=== PATIENT | male | born 1955 | race Caucasian/White ===

== ENCOUNTER 2018-02-10 09:21 | Day surgery (SDC) | payer OTHER, SELFPAY ==
--- NOTE | 2018-02-08 09:26 | EKG12_ITS ---
Test Reason : PRE-OP Blood Pressure : / mmHG Vent. Rate : 062 BPM Atrial Rate : 062 BPM P-R Int : 174 ms QRS Dur : 090 ms QT Int : 394 ms P-R-T Axes : 047 -23 006 degrees QTc Int : 399 ms Normal sinus rhythm Normal ECG Confirmed by MELY MIX, JULIANO ([id number]), editorial manager TARIK BRISCOE ([id number]) on 02/11/2018 2:53:45 PM Referred By: Zana Rondon Confirmed By:JULIANO BOONE MD
[2018-02-08 09:51] LABS: Hematocrit 45.5 % (40-54); Hemoglobin 15.9 g/dl (13.0-16.5); Mean Corp Hgb Conc 34.9 g/gl (32-36); Mean Corpuscular Hgb 31.6 pg (27.0-32.0); Mean Corpuscular Volume 90.5 fL (80-94); Mean Platelet Vol. 10.1 fl (6.2-12.0); Platelet Count 238 K/mm3 (150-450); RBC Distribution Width CV 13.1 % (11.6-14.6); Red Blood Count 5.03 M/mm3 (4.6-6.2); White Blood Count 6.1 K/mm3 (4.4-11.0)
[2018-02-08 10:13] LABS: Anion Gap 5 (5-15); BUN 17 mg/dL (7-18); BUN/Creat Ratio 16.5 RATIO (10-20); Chloride 109 mmol/L (98-107); Creatinine, Serum 1.03 mg/dL (0.70-1.30); EST Glomerular Filtration Rate 77 mL/min (>60); Est Glom Filt Rate - Afr Amer 94 mL/min (>60); Glucose 95 mg/dL (74-106); Potassium 3.9 mmol/L (3.5-5.1); Sodium Level 143 mmol/L (136-145)
[2018-02-08 10:14] LABS: Scan Indicated on CBC? Y/N NO
[2018-02-10] VITALS (8 sets, daily range): BP systolic 125–140; BP diastolic 81–90; PULSE 61–79; RESP 16; TEMP 36.2–36.7; O2SAT 92–100; BMI 23.4
--- NOTE | 2018-02-10 12:02 | PCM.DC.GS ---
Discharge Diet: Light diet - advance as tolerated - if you have questions about your diet instructions, please talk to you doctor. Discharge Activity: May Not Drive - for 1 week or while taking narcotic pain medicine. May shower in (days): 1 Lifting Restrictions: 10 pounds Call your doctor if your incision/area has: Continuous Slow Oozing, Sudden Increased Bleeding, Increased Pain/ Swelling, Increased Redness, Foul Smelling Discharge Call your doctor if you observe: Fever of 101 or Higher Suture Line Care: Avoid Pulling/Pushing, Avoid Pinching/Bending Additional Dressing/Incision Instructions:: Change or remove dressing in 4 days. Leave steri-strips in place for 1 week. Allergies/Adverse Reactions: Allergies No Known Allergies Allergy (Verified 02/05/18 15:16) Medications to take at Discharge tadalafil 20 mg tablet 20 mg PO QODAY 12/31/17 Esomeprazole Mag Trihydrate [Nexium] 20 mg PO DAILY 02/05/18 Hydrocodone Bitart/Apap 5-325 [[place] 5MG-325MG] 1 tablet PO Q6H PRN PRN 3 Days #10 tablet 02/10/18 The following prescriptions were given: Hydrocodone Bitart/Apap 5-325 [[place] 5MG-325MG] 1 tablet PO Q6H PRN PRN 3 Days #10 tablet PRN Reason: Pain Primary Care Physician: Baljinder Harrington [Primary Care Provider] - Please Follow Up With: Zana Rondon MD - [phone] When: Call to make an appointment to be seen in about 10 days.
[2018-02-10] MEDS: Cefazolin 2 GM in 0.9% Normal Saline 100 ML IV (12:05)
[2018-02-10] MEDS: Bupivacaine 0.25% 30 ML Vial (12:40)
--- NOTE | 2018-02-10 12:48 | PCM.OPRPT ---
Problem List (1) Inguinal hernia of right side without obstruction or gangrene Status: Acute Report of Operation Date of Procedure: 02/10/18 Pre-Operative Diagnosis: Right inguinal hernia Post-Operative Diagnosis: Indirect right inguinal hernia Surgery/Procedure Performed:: Laparoscopic right inguinal herniorrhaphy. Bard 3D Max mesh right large lot number [id number]. Reference #[id number]. Expiry date 05/13/2022. Secure strap lot number [id number]. Expiry date July 2018 Description of Surgical Findings:: Amount and informed consent was obtained. 62-year-old gent was taken out from. He was placed on the table. Underwent general endotracheal intubation anesthesia. Ancef 2 g given intravenously preoperatively. The abdomen was sterilely prepped and draped. 0.5% Marcaine was used as a local anesthetic. Throughout the procedure total 30 cc was used. Skin sites were pre-anesthetized. A vertical infraumbilical incision was made at the umbilicus. Sharp dissection was carried down through the substance tissue. Holding sutures of 0 Vicryl placed. Varies needle inserted. Saline drop test performed. The abdomen was insufflated with CO2 to pressure of 10 mmHg pressure. Nadeen trocar inserted. 10 lap scope inserted. No evidence of any trocar injuries under conization five-minute ports were placed on the right and left lower quadrants. The peritoneum superior lateral to the internal ring on the right was incised after abdominal expiration. There is no defect on the left there was an indirect defect on the right no evidence of other superficial abdominal abnormality. The peritoneum on the right was incised. Immediately the peritoneum was then completely dissected free. It is of note on her left scopic visualization that an ilioinguinal nerve block had been performed on the right. The peritoneum now did not completely dissected free giving access to the direct indirect and femoral area. A Bard 3D max large mesh was placed so as to cover the defect with excellent positioning. It was secured with secure strap laterally superiorly and medially. 5 total tacks were used. The peritoneum was then approximated to itself with the secure strap and complete obliteration to the mesh was achieved. Trochars removed under visualization. Hemostasis was intact. No evidence of any complication. The fascia at the umbilicus approximated interrupted 0 Vicryl figure 8 suture. Skin edges proximate interrupted 4 Monocryl subdermal stitches. Steri-Strips Telfa and OpSite dressings applied. Sponge instrument and needle counts were reported to the surgeon to be correct. He was taken to the recovery area in satisfactory condition. Specimens none. Drains none. Blood loss minimal. Zana Rondon M.D., F.A.C.S. Type of Anesthesia:: General Anesthesiologist: Kya Benton
--- NOTE | 2018-02-10 12:53 | OP.PCM_ITS ---
Problem List (1) Inguinal hernia of right side without obstruction or gangrene Status: Acute Report of Operation Date of Procedure: 02/10/18 Pre-Operative Diagnosis: Right inguinal hernia Post-Operative Diagnosis: Indirect right inguinal hernia Surgery/Procedure Performed:: Laparoscopic right inguinal herniorrhaphy. Bard 3D Max mesh right large lot number [id number]. Reference #[id number]. Expiry date . Secure strap lot number [id number]. Expiry date July 2018 Description of Surgical Findings:: Amount and informed consent was obtained. 62-year-old gent was taken out from. He was placed on the table. Underwent general endotracheal intubation anesthesia. Ancef 2 g given intravenously preoperatively. The abdomen was sterilely prepped and draped. 0.5% Marcaine was used as a local anesthetic. Throughout the procedure total 30 cc was used. Skin sites were pre- anesthetized. A vertical infraumbilical incision was made at the umbilicus. Sharp dissection was carried down through the substance tissue. Holding sutures of 0 Vicryl placed. Varies needle inserted. Saline drop test performed. The abdomen was insufflated with CO2 to pressure of 10 mmHg pressure. Nadeen trocar inserted. 10 lap scope inserted. No evidence of any trocar injuries under conization five-minute ports were placed on the right and left lower quadrants. The peritoneum superior lateral to the internal ring on the right was incised after abdominal expiration. There is no defect on the left there was an indirect defect on the right no evidence of other superficial abdominal abnormality. The peritoneum on the right was incised. Immediately the peritoneum was then completely dissected free. It is of note on her left scopic visualization that an ilioinguinal nerve block had been performed on the right. The peritoneum now did not completely dissected free giving access to the direct indirect and femoral area. A Bard 3D max large mesh was placed so as to cover the defect with excellent positioning. It was secured with secure strap laterally superiorly and medially. 5 total tacks were used. The peritoneum was then approximated to itself with the secure strap and complete obliteration to the mesh was achieved. Trochars removed under visualization. Hemostasis was intact. No evidence of any complication. The fascia at the umbilicus approximated interrupted 0 Vicryl figure 8 suture. Skin edges proximate interrupted 4 Monocryl subdermal stitches. Steri-Strips Telfa and OpSite dressings applied. Sponge instrument and needle counts were reported to the surgeon to be correct. He was taken to the recovery area in satisfactory condition. Specimens none. Drains none. Blood loss minimal. Zana Rondon M.D., F.A.C.S. Type of Anesthesia:: General Anesthesiologist: Kya Benton
[2018-02-10] MEDS: HYDROcodone Bitartrate/Apap 5/325 Tablet PO (15:35)
== END 2018-02-10 15:53 | disposition home or self-care (01) ==
LOC: SDC 09:23 → AC 09:24
PROVIDERS: Family Provider Family Medicine; PCP Family Medicine; Visit Provider Surgery
PROC: (CPT 49650; principal; 2018-02-10 10:40)
DX: K40.90 Unilateral inguinal hernia, without obstruction or gangrene, not specified as recurrent (principal); G47.30 Sleep apnea, unspecified; K21.9 Gastro-esophageal reflux disease without esophagitis; Z87.19 Personal history of other diseases of the digestive system; Z85.828 Personal history of other malignant neoplasm of skin; Z90.49 Acquired absence of other specified parts of digestive tract; Z79.899 Other long term (current) drug therapy
CPT/HCPCS: 49650; 36415; 80048; 85027; 93005; J7120; C1781

== ENCOUNTER → 2019-10-25 07:41 | Outpatient (CLI) | payer MEDICARE, SELFPAY ==
[2019-10-12 11:51] VITALS: BMI 23.4
--- NOTE | 2019-10-25 07:43 | CT_ITS ---
STUDY: CT PELVIS WITH CONTRAST REASON FOR EXAM: Male, 64 years old. Right groin pain for 6 weeks RADIATION DOSAGE (If Supplied By Facility): CTDIvol = ( 19.66 ) mGy, DLP = ( 1094.07 ) mGycm TECHNIQUE: Transaxial imaging of the pelvis was performed without oral contrast. 100ML ISOVUE 370 was administered intravenously. Individualized dose optimization techniques were used for this CT. COMPARISON: None. FINDINGS: Normal urinary bladder. Normal visualized small intestine. Normal visualized colon. There is no pelvic fluid. There is no pelvic lymphadenopathy or mass lesion. Normal visualized pelvic arteries. Specific prominence of the prostate. Small fat-containing right inguinal hernia without evidence for incarceration.. Lumbar spine demonstrates mild spondylosis.. CT/Pelvis WITH IV Contrast IMPRESSION: Small fat-containing right inguinal hernia Electronically Signed: Rafael Toledo MD at 17:34 EST , Service support ,
[2019-10-25 08:06] LABS: EGFR FINGERSTICK > 60.0000 mL/min (>60)
== END ==
PROVIDERS: Family Provider Family Medicine; PCP Family Medicine; Referring Provider Surgery; Visit Provider Surgery
DX: Z01.812 Encounter for preprocedural laboratory examination (principal); R10.31 Right lower quadrant pain
CPT/HCPCS: 72193; Q9967

== ENCOUNTER 2019-12-08 08:48 | Day surgery (SDC) | payer MEDICARE, SELFPAY ==
--- NOTE | 2019-10-28 12:59 | HP_ITS ---
Intake Visit Reasons: CT results Chief Complaint: right groin pain, hx [facility] Anthropology And Archeology Instructor Required: No Is patient in pain?: No Allergies No Known Allergies Allergy (Verified 10/28/19 13:31) Medications tadalafil 20 mg tablet 20 mg PO QODAY 12/31/17 [History Confirmed 10/28/19] Esomeprazole Mag Trihydrate [Nexium] 20 mg PO DAILY 02/05/18 [History Confirmed 10/28/19] multivitamin capsule 1 cap PO DAILY 10/12/19 [History Confirmed 10/28/19] [facility] Medical History (Updated 10/28/19 @ 12:59 by Zana Rondon MD) Recurrent right inguinal hernia (Acute) Right groin pain (Acute) Inguinal hernia of right side without obstruction or gangrene (Acute) Sleep apnea (Acute) Hemorrhoids (Acute) Acid reflux (Acute) Surgical History (Updated 02/17/18 @ 13:00 by Latanya Uriarte) S/P right inguinal hernia repair (Acute) Hx of basal cell carcinoma excision (Acute) S/P cholecystectomy (Acute) Family History (Updated 12/31/17 @ 09:43 by Latanya Uriarte) Mother Diabetes Brother Diabetes Social History (Updated 10/28/19 @ 14:27 by Zana Rondon MD) Smoking Status: Never smoker second hand exposure: No alcohol intake: current alcohol intake frequency: holidays/special occasions only substance use type: does not use caffeine: No what type of physical activity do you participate in: walking, running, weight training frequency: daily seatbelt use: always HPI HPI HPI: JUVENTINO MCNEAL, is a 64 M who presents to the office today for HPI HPI Surgical H&P: Yes HPI: JUVENTINO MCNEAL, is a 64 M who presents to the office today for ongoing surgical follow-up. I saw him on October 12, 2019. He was complaining of pain and possible recurrent hernia right groin. It is of note that February 10, 2018 I performed a laparoscopic repair of an indirect right inguinal hernia. As part of his evaluation he obtained a pelvic CT. This suggests that there is a new medial direct right inguinal hernia. I have reviewed these films with and he concurs with a medial defect just inferior to the mesh medially. [facility] Imaging Services [address] [place] [address] Pelvis WITH IV Contrast MR#: [id number]:[id number] Name: Nicole MCNEAL #:[id number] : 1955 64 From: Rafael Toledo MD PCP:Baljinder Harrington MD Status:REG CLI Study:Pelvis WITH IV Contrast Date of Exam:10/25/19 Exam#[id number] Ordering Dr: Zana Rondon MD STUDY: CT PELVIS WITH CONTRAST REASON FOR EXAM: Male, 64 years old. Right groin pain for 6 weeks RADIATION DOSAGE (If Supplied By Facility): CTDIvol = ( 19.66 ) mGy, DLP = ( 1094.07 ) mGycm TECHNIQUE: Transaxial imaging of the pelvis was performed without oral contrast. 100ML ISOVUE 370 was administered intravenously. Individualized dose optimization techniques were used for this CT. COMPARISON: None. FINDINGS: Normal urinary bladder. Normal visualized small intestine. Normal visualized colon. There is no pelvic fluid. There is no pelvic lymphadenopathy or mass lesion. Normal visualized pelvic arteries. Specific prominence of the prostate. Small fat-containing right inguinal hernia without evidence for incarceration.. Lumbar spine demonstrates mild spondylosis.. CT/Pelvis WITH IV Contrast IMPRESSION: Small fat-containing right inguinal hernia Electronically Signed: Rafael Toledo MD at 17:34 EST , Service support , ROS General General: No weight change, appetite, fatigue, colon cancer, breast cancer or weakness HEENT HEENT: No difficulty swallowing, eye injury, eye surgery, swollen glands or hoarseness Endo Endocrine: No thyroid disease, diabetes mellitus, thyroid cancer, Hair loss, heat intolerance or cold intolerance Cardio Cardiovascular: No murmur, pacemaker, heart disease, atrial fibrillation, high blood pressure, heart attack, heart stent, palpitations, shortness of breat with exertion or chest pain Resp Respiratory: No shortness of breath, Yes sleep apnea, No cough, No COPD, No asthma, No emphysema, No wheezing Gastro Gastrointestinal: No abdominal pain, No nausea or vomiting, No diarrhea, No constipation, No blood in stool, Yes acid reflux, Yes hemorrhoids, No ulcers, Yes gallbladder problem, No black,tarry stools Ronni Hematologic: No blood thinners, No blood disorders, No bleeding, No anemia, No blood clots Neuro Neurologic: No weakness Exam Const General: cooperative, healthy appearing, comfortable, no acute distress Nutritional Appearance: average body habitus [facility] Head: normal to inspection Resp Effort & Inspection: normal respiratory effort Auscultation: clear to auscultation bilaterally Cardio Rate: regular rate Rhythm: regular rhythm Heart Sounds: no murmurs GI Palpation: soft, no hepatosplenomegaly Auscultation: normal bowel sounds Other: Testicles are descended bilaterally, left groin solid and intact, medial right groin tender over the inguinal cord Neuro Cognition: normal cognition Extrem General: no calf tenderness bilaterally Assessment & Plan Problems 1. Recurrent right inguinal hernia K40.91 Plan 64-year-old gentleman who has required recurrent right inguinal hernia. His previous hernia repair January 2018 repaired a indirect inguinal hernia. He currently has a direct inguinal hernia medial recurrence. To the best of my ability and reviewing the images with radiology it appears that this is a direct defect inferior to the previously placed mesh. I specifically inquired as to whether this was a femoral defect and that is not felt to be the case. I have offered the patient a recurrent right inguinal herniorrhaphy performed through an open approach. We have discussed the technique, benefit, risk and alternatives. I anticipate utilizing a Bobbi technique. I did caution the patient about the possibility that this represents a femoral defect. If slow I will need to perform a femoral herniorrhaphy. He has had an opportunity to ask and have questions answered. We will schedule and proceed at his discretion. He is aware that mesh will be utilized from the external approach as well. Zana Rondon M.D., F.A.C.S. Coding Level of Care Code Off vis,est,level 2 Diagnoses Recurrent right inguinal hernia K40.91 History and physical has been reviewed with the patient today. He has had a renewed opportunity to ask and have questions answered. I anticipate a recurrent right inguinal herniorrhaphy performed via an open approach with utilization of mesh. The patient is aware that there is a potential that this represents a right femoral hernia. If so that will be addressed at this time as well. Zana Rondon M.D., F.A.C.S.
[2019-10-28 13:30] VITALS: BMI 21.7
[2019-12-05 08:56] VITALS: BMI 21.7
--- NOTE | 2019-12-05 09:00 | EKG12_ITS ---
Test Reason : PRE-OP Blood Pressure : / mmHG Vent. Rate : 056 BPM Atrial Rate : 056 BPM P-R Int : 180 ms QRS Dur : 094 ms QT Int : 402 ms P-R-T Axes : 050 -26 -05 degrees QTc Int : 387 ms Sinus bradycardia Otherwise normal ECG Confirmed by MELY MIX, JULIANO ([id number]), purchasing expeditor KEVAN SALDANA ([id number]) on 12/06/2019 8:57:13 AM Referred By: Zana Rondon Confirmed By:JULIANO BOONE MD
[2019-12-05 09:18] LABS: Hematocrit 46.7 % (40-54); Hemoglobin 16.4 g/dL (13.0-16.5); Mean Corp Hgb Conc 35.1 g/dL (32-36); Mean Corpuscular Hgb 32.5 pg (27.0-32.0); Mean Corpuscular Volume 92.5 fL (80-94); Mean Platelet Vol. 9.6 fl (6.2-12.0); Platelet Count 225 K/mm3 (150-450); RBC Distribution Width CV 12.6 % (11.6-14.6); RBC Distribution Width SD 42.8 fl (35.1-43.9); Red Blood Count 5.05 M/mm3 (4.6-6.2); White Blood Count 5.5 K/mm3 (4.4-11.0)
[2019-12-05 09:40] LABS: Anion Gap 3 (5-15); BUN 17 mg/dL (7-18); Calcium,Total 9.3 mg/dL (8.5-10.1); Chloride 110 mmol/L (98-107); Creatinine, Serum 1.13 mg/dL (0.70-1.30); EST Glomerular Filtration Rate 69 mL/min (>60); Est Glom Filt Rate - Afr Amer 84 mL/min (>60); Glucose 104 mg/dL (74-106); Potassium 3.9 mmol/L (3.5-5.1); Sodium Level 141 mmol/L (136-145)
[2019-12-08] VITALS (8 sets, daily range): BP systolic 110–133; BP diastolic 75–93; PULSE 16–69; RESP 14–18; TEMP 36.1–36.8; O2SAT 98–100; BMI 22.9
[2019-12-08] MEDS: Lactated Ringers 1,000 ML 15 ML IV (09:37)
[2019-12-08] MEDS: Cefazolin 2 GM in 0.9% Normal Saline 100 ML IV (10:47)
--- NOTE | 2019-12-08 11:00 | LIP_PTH ---
PATIENT: JUVENTINO MCNEAL LOC: [facility] [place] U#:[id number] AGE/SX: 64/M ROOM: RE12/08/[address]: Dr. Zana Rondon MD : 1955 BED: DIS: 12/08/2019 SPEC #: [id number] RECD: 12/08/19 12:25 STATUS: CHRISTOPHER PRABHJOT #: [id number] CESILIA: 12/08/19 11:[address]: Zana Rondon DEPT: SURGICAL PATHOLOGY RECD BY: Elio Valdez ENTERED: 12/08/19 14:00 SP TYPE: LIPOMA OTHR DR: Dr. Baljinder Harrington MD Tissues: Soft tissues, NOS Procedures: Surgery Specimen Level III HEADER OPERATION: Recurrent inguinal hernia with mesh PRE-OP DIAGNOSIS: Recurrent right inguinal hernia K40.91 TISSUE SUBMITTED: Right cord lipoma MICROSCOPIC DIAGNOSIS Right cord lipoma: Mature adipose tissue, consistent with lipoma. SJ:akila 12/09/19 MICROSCOPIC DESCRIPTION Slides are reviewed. GROSS DESCRIPTION Received in fixative is one container labeled with the patient's name and designated cord lipoma. The specimen consists of a piece of yellow adipose tissue measuring 5 x 2.5 x 1.5 cm. Sections reveal yellow adipose cut surfaces without area of hemorrhage, necrosis or cystic degeneration. Also present in the container are two pieces of cruz soft tissue measuring in aggregate 2 x 1 x 0.3 cm. Solvent Plant Operator sections are submitted in two cassettes. Cassette 1 contains the two smaller pieces of detached tissue. / COOPER:akila 12/08/19 TC:1 CPT: 84071
[2019-12-08] MEDS: Bupivacaine Mpf 0.5% 30 ML VIAL (11:53)
--- NOTE | 2019-12-08 12:04 | PCM.OPRPT ---
Problem List (1) Recurrent right inguinal hernia Status: Acute Report of Operation Date of Procedure: 12/08/19 Pre-Operative Diagnosis: Recurrent right inguinal hernia Post-Operative Diagnosis: Recurrent small indirect right inguinal hernia with cord lipoma Surgery/Procedure Performed:: Bobbi right inguinal herniorrhaphy. Bard appreciate keyhole mesh. Lot number [id number]. Reference #[id number]. Expiry date 06/12/2024 Description of Surgical Findings:: Timeout and informed consent was obtained. 64-year-old gent was taken the operating placement table underwent monitored anesthesia care. Ancef 2 g given intravenously. The right groin was sterilely prepped draped. 1% lidocaine mixed 50-50 with 0.5% Marcaine was used as a local anesthetic. A total of 25 cc was used. Local was instilled. Transverse incision was created sharp dissection carried down through the subtenons tissue. External oblique identified incised along with the fascia inguinal nerve identified protected. Inspection revealed the direct floor appeared to be solid. There appeared to be a small cord lipoma emanating laterally with a very small defect lateral to the cord structures. I dissected this free high ligated the lipoma with 3-0 Vicryl. I then supported the transversalis fascia at that level with a running 3-0 Ethibond. Medially careful inspection of the direct space demonstrated it to be solid and intact. I could not palpate a femoral hernia however review with radiology Dr. Zhou preoperatively suggested no evidence of femoral hernia. I then used a cookie keyhole mesh carefully wrapped that around the internal ring and secured to itself with 3-0 Ethibond. Slightly trimmed the tails and then placed this beneath the external oblique laterally. I secured the mesh in place with multiple interrupted 3-0 Ethibond sutures. I felt that I had good securement. The ileal nerve was protected with the cord structures. Good positioning was achieved. The external oblique was approximated with several interrupted sutures of 3-0 Vicryl. Subcutaneous since tissues approximated with interrupted 4-0 Monocryl. Skin edges approximated running septic or 4-0 Monocryl. Steri-Strips Telfa and OpSite dressings applied. Sponge and instrument and needle counts were reported to the surgeon be correct. Blood loss minimal. Specimen cord lipoma fragment of sac. Drains none. Blood loss minimal. Zana Rondon M.D., F.A.C.S. Type of Anesthesia:: Local MAC Anesthesiologist: Len Carias
--- NOTE | 2019-12-08 12:09 | DCINST_ITS ---
Discharge Diet: Light diet - advance as tolerated - if you have questions about your diet instructions, please talk to you doctor. Discharge Activity: May Not Drive - for 3-5 days or while taking narcotic pain medicine. May shower in (days): 1 Lifting Restrictions: 10 pounds Call your doctor if your incision/area has: Continuous Slow Oozing, Sudden Increased Bleeding, Increased Pain/ Swelling, Increased Redness, Foul Smelling Discharge Call your doctor if you observe: Fever of 101 or Higher Suture Line Care: Avoid Pulling/Pushing, Avoid Pinching/Bending Additional Dressing/Incision Instructions:: Change or remove dressing in 4 days. Leave steri-strips in place for 1 week. Allergies/Adverse Reactions: Allergies No Known Allergies Allergy (Verified 11/21/19 14:28) Medications to take at Discharge tadalafil 20 mg tablet 20 mg PO PRN PRN 12/31/17 Esomeprazole Mag Trihydrate [Nexium] 20 mg PO DAILY 02/05/18 multivitamin 1 cap PO DAILY 10/12/19 Methylprednisolone [Methylpred Dp] 4 mg PO .DOSE PACK 11/21/19 Hydrocodone Bitart/Apap 5-325 [[place] 5MG-325MG] 1 tab PO Q6H PRN PRN 2 Days #8 tab 12/08/19 The following prescriptions were given: Hydrocodone Bitart/Apap 5-325 [[place] 5MG-325MG] 1 tab PO Q6H PRN PRN 2 Days #8 tab PRN Reason: Pain Transmission Status: Received by [facility] Primary Care Physician: Baljinder Harrington MD [Primary Care Provider] - Test Results: Test results from this visit will be discussed in further detail at your follow- up appointment, if applicable. Please Follow Up With: Zana Rondon MD - [phone] When: Call to make an appointment to be seen in about 10 days.
== END 2019-12-08 14:05 | disposition home or self-care (01) ==
LOC: SDC 08:49 → AC 08:50
PROVIDERS: Family Provider Family Medicine; PCP Family Medicine; Referring Provider Surgery; Visit Provider Surgery
PROC: (CPT 49520; principal; 2019-12-08 10:45)
DX: K40.91 Unilateral inguinal hernia, without obstruction or gangrene, recurrent (principal); D17.6 Benign lipomatous neoplasm of spermatic cord; K21.9 Gastro-esophageal reflux disease without esophagitis; G47.30 Sleep apnea, unspecified; Z79.899 Other long term (current) drug therapy
CPT/HCPCS: 49520; 55520; 36415; 80048; 85027; 88304; 93005; J7120; C1781